=== PATIENT | female | born 1960 | race Caucasian/White ===

== ENCOUNTER 2017-06-23 10:25 | Emergency (ER) | payer OTHER, BC ==
[~2017-06-23] VITALS: Ht 157.5 cm; Wt 88.0 kg
[2017-06-23] MEDS ORDERED: CYMBALTA60 MG PO (10:45)
[2017-06-23] MEDS ORDERED: METFORMIN HCL500 MG PO (10:45)
[2017-06-23] MEDS ORDERED: NATURE-THROI16.25 MG PO (10:45)
[2017-06-23] MEDS ORDERED: MACROBID 100 M100 M2 PO (10:46)
[2017-06-23] MEDS ORDERED: VITAMIN D2000 UNIT PO (10:46)
[2017-06-23] MEDS ORDERED: XANAX1 MG PO (10:46)
[2017-06-23 11:12] LABS: ABSOLUTE NEUTROPHILS 3.2 thou/uL (1.4-8.2); BASOPHILS 0.4 % (0.0-2.0); EOSINOPHILS 2.7 % (0.0-3.0); HEMATOCRIT 38.5 % (37.0-47.0); LYMPHOCYTES 20.7 % (24.0-44.0); MCH 28.7 pg (26.0-34.0); MCHC 33.9 g/dL (28.0-37.0); MCV 84.9 fL (80.0-100.0); MONOCYTES 10.4 % (1.0-8.0); PLATELET COUNT 154 thou/uL (150-400); POLYS 65.8 % (36.0-66.0); RBC 4.54 mil/uL (4.20-5.00); RDW 14.7 % (10.5-14.5); WBC 4.9 thou/uL (4.0-11.0)
[2017-06-23 11:13] LABS: MANUAL DIFF NO
[2017-06-23 11:23] LABS: CALCIUM 8.9 mg/dL (8.5-10.1); CREATININE 0.6 mg/dL (0.6-1.0); POTASSIUM 4.4 mmol/L (3.5-5.1)
[2017-06-23 11:43] LABS: URINE BILIRUBIN NEGATIVE (Negative); URINE BLOOD NEGATIVE (Negative); URINE COLOR YELLOW; URINE GLUCOSE-RANDOM* TRACE (Negative); URINE KETONES TRACE (Negative); URINE LEUKOCYTES-REFLEX NEGATIVE (Negative); URINE PROTEIN (DIPSTICK) TRACE (Negative); URINE SPECIFIC GRAVITY 1.015 (1.003-1.035)
[2017-06-23 14:08] VITALS: BP 137/46
== END 2017-06-23 13:50 | disposition home or self-care (01) ==
LOC: ER 10:25
PROVIDERS: Emergency Medicine
DX: J06.9 Acute upper respiratory infection, unspecified (principal); R49.0 Dysphonia; E03.9 Hypothyroidism, unspecified; E11.9 Type 2 diabetes mellitus without complications; E66.9 Obesity, unspecified; Z90.49 Acquired absence of other specified parts of digestive tract; Z90.710 Acquired absence of both cervix and uterus; Z98.890 Other specified postprocedural states; Z88.5 Allergy status to narcotic agent; Z88.0 Allergy status to penicillin; Z88.2 Allergy status to sulfonamides; Z68.35 Body mass index [BMI] 35.0-35.9, adult